=== PATIENT | female | born 1995 | race Caucasian/White ===

== ENCOUNTER 2019-07-03 09:04 | Observation (INO) | payer OTHER ==
[~2019-07-03] VITALS: Ht 167.6 cm; Wt 80.3 kg
[~2019-07-03 09:04] MED LIST: IBUPROFEN 800800 MG PO; NOHOMEMEDICATIONS
[2019-07-03 09:18] VITALS: BP 149/90
[2019-07-03] MEDS ORDERED: NAPROXEN SODIU500 MG PO (09:25)
[2019-07-03 09:41] LABS: ABSOLUTE EOSINOPHILS 0.1 thou/uL (0.0-0.7); ABSOLUTE LYMPHOCYTES 1.7 thou/uL (0.8-5.3); ABSOLUTE MONOCYTES 0.3 thou/uL (0.0-1.2); ABSOLUTE NEUTROPHILS 3.4 thou/uL (1.6-8.1); BASOPHILS 0.5 %; HEMATOCRIT 43.8 % (37.0-47.0); HEMOGLOBIN 15.2 gm/dL (12.0-15.0); MCH 33.1 pg (26.0-34.0); MCHC 34.8 g/dL (28.0-37.0); MCV 95.3 fL (80.0-100.0); MONOCYTES 5.2 %; MPV 9.2 fl. (7.2-11.1); NUCLEATED RBCS 0 /100WBC; PLATELET COUNT* 188 thou/uL (150-400); POLYS 62.3 %; RDW-CV 12.6 % (10.5-14.5); WBC 5.4 thou/uL (4.0-11.0)
[2019-07-03 09:52] LABS: CALCIUM 8.8 mg/dL (8.5-10.1); CREATININE 0.8 mg/dL (0.6-1.3); POTASSIUM 3.8 mmol/L (3.5-5.1)
[2019-07-03 09:57] LABS: ALBUMIN 3.9 g/dL (3.4-5.0); TOTAL BILIRUBIN 0.6 mg/dL (<0.1-1.0); TOTAL PROTEIN 7.5 g/dL (6.4-8.2)
[2019-07-03 10:47] VITALS: BP 108/75
[2019-07-03 11:13] LABS: PROTIME 10.5 Seconds (9.20-11.50)
[2019-07-03 16:00] VITALS: BP 106/69
[2019-07-03 19:50] VITALS: BP 111/69
[2019-07-04] VITALS: BP 107/49
[2019-07-04 03:07] LABS: GLYCOHEMOGLOBIN (HGB A1C) 4.9 % (4.8-5.6)
[2019-07-04 04:00] VITALS: BP 97/46
[2019-07-04 04:27] LABS: HEMATOCRIT 39.5 % (37.0-47.0); HEMOGLOBIN 13.8 gm/dL (12.0-15.0); MCH 33.3 pg (26.0-34.0); MCHC 34.9 g/dL (28.0-37.0); MCV 95.6 fL (80.0-100.0); MPV 9.2 fl. (7.2-11.1); RBC 4.13 mil/uL (4.20-5.00); RDW-CV 12.4 % (10.5-14.5); WBC 5.4 thou/uL (4.0-11.0)
--- NOTE | 2019-07-04 04:33 | NUR ---
ASSUMED CARE OF PT AT 1900. PT IS ALERT AND ORIENTED. VSS. PERRLA. NO COMPLAINTS OF PAIN. STEADY GAIT. PT IS IN SINUS RYTHM ON THE TELEMETRY. PT IS RESTING COMFORTABLY IN BED. RESPIRATIONS ARE EVEN AND NONLABORED. WILL CONTINUE TO MONITOR PT.
[2019-07-04 04:49] LABS: CALCIUM 8.2 mg/dL (8.5-10.1); CREATININE 0.8 mg/dL (0.6-1.3); MAGNESIUM 1.8 mg/dL (1.8-2.4); POTASSIUM 3.9 mmol/L (3.5-5.1)
[2019-07-04 04:51] LABS: CHOLESTEROL 175 mg/dL (<200); HDL CHOLESTEROL 43 mg/dL (>40); LDL CHOLESTEROL 114 mg/dL (<100); TC:HDL 4.1 Ratio (Not establshd); TRIGLYCERIDE 93 mg/dL (<150); VLDL 19 mg/dL (<40)
[2019-07-04 04:52] LABS: SERUM ASSESSMENT CLEAR
--- NOTE | 2019-07-04 07:10 | NUR ---
CHANGE OF SHIFT, BEDSIDE REPORT GIVEN PATIENT SEEN AT BEDSIDE, IN BED ASLEEP ASSUMED PATIENT CARE
[2019-07-04] MEDS ORDERED: ASA5UEC PO (07:56)
[2019-07-04 08:00] VITALS: BP 120/82
[2019-07-04 09:25] VITALS: BP 120/82
--- NOTE | 2019-07-04 10:45 | NUR ---
DISCHARGE TO HOME ALL DISCHARGE INSTRUCTION GIVEN, ACKNOWLEDGED, SIGNED COPIES GIVEN IV AND HEART MONITOR AND PERSONAL BELONGINGS RETURNED PATIENT ASSISTED OUT TO WAITING CAR VIA
--- NOTE | 2019-07-04 12:28 | NUR ---
PT PREPARING FOR DISCHARGE, PER NSG UP AD ANA INDEP. DEFERRAL PT SERVICES AT THIS TIME DUE TO PENDING DISCHARGE TO HOME.
--- NOTE | 2019-07-04 14:44 | EKG ---
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
== END 2019-07-04 11:00 | disposition home or self-care (01) ==
LOC: M.ERS 09:04 → M.TBA-ER 10:26 → M.2W 10:57
PROVIDERS: Emergency Medicine Emergency Medical Services; ADMIT Internal Medicine
DX: R20.0 Anesthesia of skin (principal); D75.1 Secondary polycythemia; G43.109 Migraine with aura, not intractable, without status migrainosus